=== PATIENT | male | born 1975 | race Caucasian/White ===

== ENCOUNTER 2016-07-15 17:57 | Emergency (ER) | payer OTHER ==
[2016-07-15 18:13] VITALS: TEMP 97.5
[2016-07-15 18:14] VITALS: BMI 30.7
[2016-07-15] MEDS ORDERED: HYDROmorphone 1 MG INJECTION IV ONE (18:22)
[2016-07-15] MEDS ORDERED: ONDANSETRON HCL 4 MG/2 ML VIAL IV ONE (18:22)
[2016-07-15] MEDS ORDERED: Cefazolin 1gm/50 ml D5W 1 GM/50 ML RTU IV ONE (19:00)
--- NOTE | 2016-07-15 19:14 | DIRPT ---
CLINICAL DATA: Initial evaluation for acute trauma. EXAM: LEFT FOOT - COMPLETE 3+ VIEW COMPARISON: None. FINDINGS: Soft tissue laceration overlies the medial aspect of the first metatarsal head. Underlying mL X pallidus and metatarsus previous varus deformity. There are several linear lucencies with cortical irregularity traversing the underlying osseous bunion, suspicious for acute nondisplaced fractures. No other fracture. Joint spaces maintained. Degenerative spurring in at the dorsal foot. IMPRESSION: 1. Soft tissue laceration at the medial aspect of the first metatarsal head. Cortical regularity with osseous lucency traversing the underlying osseous bunion suspicious for fracture. 2. No other acute traumatic injury about the foot. Electronically Signed By: Luis Alfredo Acosta M.D. On: 07/15/2016 19:11
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
[2016-07-15] MEDS ORDERED: OXYCODONE HCL 5 MG TABLET PO ONE (20:18)
[2016-07-15] MEDS ORDERED: IBUPROFEN 600 MG TAB PO ONE (20:19)
[2016-07-15] MEDS ORDERED: Lidocaine 2%-Epinephrine 1:100,000 20ml vial INF ONE (20:19)
[2016-07-15] MEDS ORDERED: DIPHTHERIA AND TETANUS (ADULT) 0.5 ML SYR IM ONE (21:05)
[2016-07-15 21:33] VITALS: BP 136/74; PULSE 86
== END 2016-07-15 21:32 | disposition home or self-care (01) ==
LOC: EDMC 17:57
DX: S92.902B Unspecified fracture of left foot, initial encounter for open fracture (principal); V86.59XA Driver of other special all-terrain or other off-road motor vehicle injured in nontraffic accident, initial encounter; Y93.I9 Activity, other involving external motion; Z23 Encounter for immunization
CPT/HCPCS: 73630; 90471; 90714; 96365; 96375; 99284; J0690; J1170; J2405; J3490